=== PATIENT | male | born 1960 | race Caucasian/White ===

== ENCOUNTER 2016-12-08 20:51 | Emergency (ER) | payer MEDICAID ==
[2016-12-08 20:57] VITALS: TEMP 97.9
--- NOTE | 2016-12-08 21:02 | EDPHY ---
H & P Stated Complaint: LEFT SIDE FACE SWELLING 2 HRS. MOUTH/THROAT PAIN HPI/ROS: HPI CHIEF COMPLAINT: Left submandibular swelling and pain. HISTORY OF PRESENT ILLNESS: This patient very pleasant 56-year-old male tells me is no significant medical history does not take any daily medications, he does smoke tobacco and he has poor dentition, presents emergency room with swelling and pain left submandibular region. He states this started 2 hours ago. No fever. No trouble swallowing. No change in phonation. No trauma. States initially felt some pain to his left posterior gumline and then developed this swelling submandibular space left-sided. Past Medical History: No medical history Past Surgical History: Denies surgical history Social History: Denies daily use of alcohol or drugs does smoke tobacco resides at [place]. Family History: Noncontributory ROS REVIEW OF SYSTEMS: A comprehensive 10 point review of systems is otherwise negative aside from elements mentioned in the history of present illness. Exam Constitutional triage nursing summary reviewed, vital signs reviewed, awake/ alert. Eyes normal conjunctivae and sclera, EOMI, PERRLA. HENT oropharynx: Poor dentition. Multiple teeth missing. There is no signs of Yordan's on exam, no signs of gumline abscess, uvula midline, no signs of APPRAISAL COORDINATOR , no stridor, normal inspection, moist mucus membranes, no epistaxis, neck supple/ no meningismus, no raccoon eyes. Respiratory clear to auscultation bilaterally, normal breath sounds, no respiratory distress, no wheezing. Cardiovascular rate normal, regular rhythm, no murmur, no edema, distal pulses normal. Gastrointestinal soft, non-tender, no rebound, no guarding, normal bowel sounds, no distension, no pulsatile mass. Genitourinary no CVA tenderness. Musculoskeletal no midline vertebral tenderness, full range of motion, no calf swelling, no tenderness of extremities, no meningismus, good pulses, neurovascularly intact. Skin pink, warm, & dry, no rash, skin atraumatic. Neurologic awake, alert and oriented x 3, AAOx3, moves all 4 extremities equally, motor intact, sensory intact, CN II-XII intact, normal cerebellar, normal vision, normal speech. Psychiatric normal mood/affect. Heme/Lymph/Immune no lymphadenopathy. Differential Diagnosis: Includes but is not limited to in a particular order, submandibular abscess, submandibular lymphadenopathy from dental infection, deep space neck abscess Medical Decision Making: Plan for this patient he appears well nontoxic no acute distress will perform CT soft tissue with neck with IV contrast, check basic blood work. Re-evaluation: Patient's CT scan reviewed. Shows submandibular gland swelling. No significant lymphadenopathy no fluid collection. Additionally the CT scan shows significant emphysematous changes of his lungs. I went over this results of the CT scan with him. I made the following recommendations. He should stop immediately smoking. Additionally his creatinine was noted be elevated here in the emergency room at 2.6. Unclear what his baseline is. He will need to follow up outpatient primary care about his elevated creatinine. Additionally she follow-up pulmonary about his emphysematous lung disease additionally should follow up with ENT about his right submandibular salivary gland inflammation. The patient be placed on lemon drops and clindamycin. ENT referral. Additionally patient understands return emergency room if he develops worsening symptoms questions or concerns includes fever, worsening pain, worsening swelling. Source: Patient - Personal History Current Tetanus/Diphtheria Vaccine: No Current Tetanus Diphtheria and Acellular Pertussis (TDAP): No - Medical/Surgical History Hx Asthma: No Hx Chronic Respiratory Disease: No Hx Diabetes: No Hx Cardiac Disease: No Hx Renal Disease: No Hx Cirrhosis: No Hx Alcoholism: No Hx HIV/AIDS: No Hx Splenectomy or Spleen Trauma: No Other PMH: DENIES - Social History Smoking Status: Current every day smoker Constitutional: Initial Vital Signs Temperature (C) 36.6 C 12/08/16 20:54 Heart Rate 87 12/08/16 20:54 Respiratory Rate 18 12/08/16 20:54 Blood Pressure 113/78 12/08/16 20:54 O2 Sat (%) 95 12/08/16 20:54 O2 Delivery Mode Room Air Allergies/Adverse Reactions: No Known Allergies Allergy (Unverified 12/08/16 20:57) Home Medications: Medication Instructions Recorded Clindamycin HCl [Clindamycin] 300 mg PO TID #30 cap 12/08/16 Hydrocodone/APAP 5/325 [[place] 1 - 2 tab PO Q4H PRN #10 tab 12/08/16 5/325] Ibuprofen [Motrin (*)] 800 mg PO Q6-8PRN #10 tab 12/08/16 Medical Decision Making - Data Points Laboratory Results: Laboratory Results 12/08/16 21:14 12/08/16 21:14 12/08/16 12/08/16 12/08/16 21:21 21:14 21:14 WBC 9.75 10^3/uL H 10^3/uL (3.80-9.50) RBC 5.19 10^6/uL 10^6/uL (4.40-6.38) Hgb 16.2 g/dL g/dL (13.7-17.5) POC Hgb 16.0 gm/dL gm/dL (13.7-17.5) Hct 46.3 % % (40.0-51.0) POC Hct 47 % % (40-51) MCV 89.2 fL fL (81.5-99.8) MCH 31.2 pg pg (27.9-34.1) MCHC 35.0 g/dL g/dL (32.4-36.7) RDW 13.0 % % (11.5-15.2) Plt Count 229 10^3/uL 10^3/uL (150-400) MPV 10.3 fL fL (8.7-11.7) Neut % (Auto) 56.6 % % (39.3-74.2) Lymph % (Auto) 29.8 % % (15.0-45.0) [place] % (Auto) 6.6 % % (4.5-13.0) Eos % (Auto) 6.2 % % (0.6-7.6) Baso % (Auto) 0.6 % % (0.3-1.7) Nucleat RBC Rel Count 0.0 % % (0.0-0.2) Absolute Neuts (auto) 5.52 10^3/uL 10^3/uL (1.70-6.50) Absolute Lymphs (auto) 2.91 10^3/uL 10^3/uL (1.00-3.00) Absolute Monos (auto) 0.64 10^3/uL 10^3/uL (0.30-0.80) Absolute Eos (auto) 0.60 10^3/uL H 10^3/uL (0.03-0.40) Absolute Basos (auto) 0.06 10^3/uL 10^3/uL (0.02-0.10) Absolute Nucleated RBC 0.00 10^3/uL 10^3/uL (0-0.01) Immature Gran % 0.2 % % (0.0-1.1) Immature Gran # 0.02 10^3/uL 10^3/uL (0.00-0.10) POC Sodium 140 mEq/L mEq/L (134-144) Sodium 136 mEq/L mEq/L (134-144) POC Potassium 3.9 mEq/L mEq/L (3.3-5.0) Potassium 4.2 mEq/L mEq/L (3.5-5.2) POC Chloride 102 mEq/L mEq/L (97-110) Chloride 103 mEq/L mEq/L (97-110) Carbon Dioxide 21 mEq/l L mEq/l (22-31) Anion Gap 12 mEq/L mEq/L (8-16) POC BUN 18 mg/dL mg/dL (7-23) BUN 19 mg/dL mg/dL (7-23) Creatinine 2.4 mg/dL H mg/dL (0.7-1.3) POC Creatinine 2.6 mg/dL H mg/dL (0.7-1.3) Estimated GFR 28 Glucose 96 mg/dL mg/dL (70-100) POC Glucose 105 mg/dL H mg/dL (70-100) Calcium 9.5 mg/dL mg/dL (8.5-10.4) Medications Given: Discontinued Medications Albuterol/Ipratropium (Duoneb) 3 ml IH EDNOW ONE Stop: 12/08/16 21:46 Last Admin: 12/08/16 21:50 Dose: 3 ml Sodium Chloride (Ns) 1,000 mls @ 0 mls/hr IV EDNOW ONE; Wide Open PRN Reason: Protocol Stop: 12/08/16 21:07 Last Admin: 12/08/16 21:32 Dose: 1,000 mls Point of Care Test Results: 12/08/16 21:21 POC Sodium 140 POC Potassium 3.9 POC Chloride 102 POC BUN 18 POC Creatinine 2.6 H POC Glucose 105 H Departure - Departure Disposition: Home, Routine, Self-Care Clinical Impression: Salivary gland inflammation, Creatinine elevation Emphysema lung Qualifiers: Emphysema type: unspecified Qualified Code(s): J43.9 - Emphysema, unspecified Condition: Good Instructions: Sialoadenitis (ED), Sialorrhea (ED) Additional Instructions: 1. Suck on lemon drops. 2. Return emergency room if develops worsening symptoms questions or concerns includes worsening pain, fever. 3. Follow up with ENT. Call their for an appointment. 4. Please stop smoking. 5. Your kidney function was noted to be elevated here in the emergency room. You need to follow up with primary care doctor about this. Referrals: NONE *PRIMARY CARE P,. [Primary Care Provider] - As per Instructions Cyrus Krishna MD [Medical Doctor] - As per Instructions Tomi Yuan MD [Medical Doctor] - As per Instructions [facility],. [Clinic] - As per Instructions Prescriptions: Clindamycin HCl [Clindamycin] 300 mg PO TID #30 cap Hydrocodone/APAP 5/325 [[place] 5/325] 1 - 2 tab PO Q4H PRN #10 tab PRN Reason: Pain, Moderate Ibuprofen [Motrin (*)] 800 mg PO Q6-8PRN #10 tab
[2016-12-08] MEDS ORDERED: NS 1,000 ML IV ONE (21:06)
[2016-12-08 21:21] LABS: % IMMATURE GRANULYOCYTES 0.2 % (0.0-1.1); ABSOLUTE IMMATURE GRANULOCYTES 0.02 10^3/uL (0.00-0.10); ADD DIFF? NO; ADD MORPH? NO; ADD SCAN? NO; ATYPICAL LYMPHOCYTE FLAG 20 (0-99); FRAGMENT RBC FLAG 0 (0-99); HEMATOCRIT 46.3 % (40.0-51.0); HEMOGLOBIN 16.2 g/dL (13.7-17.5); LEFT SHIFT FLG 0 (0-99); LIPEMIA HEMOLYSIS FLAG 90 (0-99); MEAN CELL HEMOGLOBIN 31.2 pg (27.9-34.1); MEAN CELL VOLUME 89.2 fL (81.5-99.8); MEAN PLATELET VOLUME 10.3 fL (8.7-11.7); PLATELET CLUMPS FLAG 10 (0-99); PLATELET COUNT 229 10^3/uL (150-400); RED BLOOD CELL COUNT 5.19 10^6/uL (4.40-6.38)
[2016-12-08] MEDS ORDERED: IOPAMIDOL (ISOVUE-300) 100 ML BTL ONE (21:21)
[2016-12-08 21:38] LABS: ANION GAP 12 mEq/L (8-16); CALCIUM 9.5 mg/dL (8.5-10.4); CARBON DIOXIDE 21 mEq/l (22-31); CHLORIDE 103 mEq/L (97-110); CREATININE 2.4 mg/dL (0.7-1.3); GLOMERULAR FILTRATION RATE 28; GLUCOSE 96 mg/dL (70-100); POTASSIUM 4.2 mEq/L (3.5-5.2); SODIUM 136 mEq/L (134-144)
[2016-12-08] MEDS ORDERED: IPRATROPIUM/ALBUTEROL 3 ML DEYVIAL IH ONE (21:45)
[2016-12-08] MEDS ORDERED: CLINDAMYCIN 150 MG CAP PO ONE (22:12)
[2016-12-08] MEDS ORDERED: HYDROCODONE/APAP 5/325 TAB PO ONE (22:12)
[2016-12-08] MEDS ORDERED: HYDROCOD/APAP 5/325 PREPACK#6 BTL TAKEHOME ONE (22:12)
[2016-12-08 22:28] VITALS: BP 128/66; PULSE 93; RESP 16; O2SAT 92
== END 2016-12-08 22:36 | disposition home or self-care (01) ==
DX: K11.20 Sialoadenitis, unspecified (principal); J43.9 Emphysema, unspecified; R94.4 Abnormal results of kidney function studies; E86.9 Volume depletion, unspecified; F17.200 Nicotine dependence, unspecified, uncomplicated
CPT/HCPCS: 82947-QW; Q9967